=== PATIENT | female | born 1950 | race Caucasian/White ===

== ENCOUNTER 2020-06-22 14:08 | Outpatient (CLI) | payer MEDICARE, SELFPAY ==
--- NOTE | ~2020-06-22 | CT_ITS ---
EXAMINATION: CT chest wo con EXAM DATE: 06/22/2020 14:50 INDICATION: Pulmonary nodule follow-up. TECHNIQUE: Spiral CT of the chest without contrast. Low-dose technique used. Axial, coronal and sagi ttal images were reviewed. Coronal maximum intensity pixel images of chest reviewed. The dose-lengt h product (DLP) for this examination was 119.01 mGy-cm. The exposure was tailored according to patie nt size (auto mA exposure control), and iterative reconstruction (ASIR) was used as additional dose r eduction technique. Comparison is made to prior examination from 06/29/2019. FINDINGS: There is severe emphysema and moderate hyperinflation. Previously described 5 mm left uppe r lobe nodule is reidentified, decreased in size now measuring 4 mm. Right upper lobe scarring again noted. No new or suspicious pulmonary nodules. There are no pleural or pericardial effusions. Trac heobronchial tree is patent. There is no mediastinal, hilar or axillary lymphadenopathy. There is no pneumothorax. Heart normal in size. There are dense coronary arteries, could be severe umnguia ry arterial sclerosis and/or coronary artery stent(s), which are difficult to distinguish due to card iac motion on this non-gated exam. Correlate with cardiac history and consider cardiology consult if not recently evaluated. Upper abdomen is unremarkable. There is moderate thoracic spondylosis with out osteoblastic or osteolytic lesions identified. Mild lower thoracic levoscoliosis. IMPRESSION: 1. Left upper lobe nodule with decrease in size, consistent with noncalcified granuloma. 2. Severe emphysema. Moderate hyperinflation. 3. Severe coronary artery calcifications versus stents. Reviewed, dictated and finalized at location A.
== END 2020-06-22 14:09 | disposition home or self-care (01) ==
PROVIDERS: PCP Internal Medicine Infectious Disease; Visit Provider Nurse Practitioner
DX: R91.1 Solitary pulmonary nodule (principal); J43.9 Emphysema, unspecified; I25.10 Atherosclerotic heart disease of native coronary artery without angina pectoris
CPT/HCPCS: 71250

== ENCOUNTER 2020-12-29 13:28 | Outpatient (CLI) | payer MEDICARE, SELFPAY ==
[2020-12-29] VITALS (9 sets, daily range): O2SAT 83–92
--- NOTE | 2020-12-29 15:13 | HOMEO2EVAL ---
Evaluation was performed at [facility] Home Oxygen Evaluation RC: Home Oxygen (O2) Evaluation Start: 12/29/20 15:07 Freq: Status: Active Protocol: RPE Activity Type Activity Date Activity User E-Sign Co-Sign Detail Recorded Client Recorded Date Recorded By Document 12/29/20 14:30 [email or web address] 12/29/20 15:13 DJO Document 12/29/20 14:33 [email or web address] 12/29/20 15:13 DJO Document 12/29/20 14:34 [email or web address] 12/29/20 15:13 DJO Document 12/29/20 14:35 [email or web address] 12/29/20 15:13 DJO Document 12/29/20 14:36 [email or web address] 12/29/20 15:13 DJO Document 12/29/20 14:37 [email or web address] 12/29/20 15:13 DJO Document 12/29/20 14:38 [email or web address] 12/29/20 15:13 DJO Document 12/29/20 14:39 [email or web address] 12/29/20 15:13 DJO Document 12/29/20 14:45 [email or web address] 12/29/20 15:13 DJO 12/29/20 12/29/20 12/29/20 14:30 14:33 14:34 Home O2 Evaluation Test Phase Resting Exercise Exercise Oxygen Delivery Room Air Room Air Nasal Cannula Oxygen Flow Rate (L/min) 1 Pulse Oximetry (90-100 %) 92 83 L 84 L Ambulation Distance (feet) Home Oxygen Evaluation Comments Treatment Charges O2 Evaluation - Outpatient 12/29/20 12/29/20 12/29/20 14:35 14:36 14:37 Home O2 Evaluation Test Phase Exercise Exercise Exercise Oxygen Delivery Nasal Cannula Nasal Cannula Nasal Cannula Oxygen Flow Rate (L/min) 2 3 4 Pulse Oximetry (90-100 %) 85 L 85 L 85 L Ambulation Distance (feet) Home Oxygen Evaluation Comments Treatment Charges 12/29/20 12/29/20 12/29/20 14:38 14:39 14:45 Home O2 Evaluation Test Phase Exercise Exercise Resting Oxygen Delivery Nasal Cannula Nasal Cannula Room Air Oxygen Flow Rate (L/min) 5 6 Pulse Oximetry (90-100 %) 86 L 89 L 91 Ambulation Distance (feet) 450 Home Oxygen Evaluation Comments STOPPED EVERY PT REQUIRES 6 L 200 FEET TO PULSE DOSE O2 TITRATE O2. WITH EXERTION. PT USED ROOM AIR AT PERSONAL O2 AND REST. PERSONAL WHEELED WALKER. Treatment Charges
--- NOTE | 2020-12-29 15:13 | PCRCNOTE ---
HOME O2 EVAL FAXED TO OFFICE STAFF
--- NOTE | 2020-12-29 17:19 | WPDPFTINT ---
PFT Procedure Performed PFT Procedure Performed Spirometry with Pre/Post Bronchodilator Plethysmography (Lung Vol) Diffusing Cap (DLCO) PFT Interpretation This is a pulmonary function test with pre and post-bronchodilator spirometry, plethysmography and diffusing capacity. The test was performed and results interpreted in accordance with the 2019 and 2005 ATS/ERS Task Force guidelines respectively using the Global Lung Function Initiative-2012 reference equations. Patient demonstrated good effort and cooperation. Reproducibility criteria were met. The quality of the pre bronchodilator spirometry maneuver was Grade A and post bronchodilator spirometry maneuver was Grade A. Findings: Spirometry: There is decreased maximal expiratory airflow at all lung volumes with concave expiratory flow tracing. The contour of the inspiratory flow tracing is normal. The pre bronchodilator FVC is 1.29 L, 49% predicted. The pre bronchodilator FEV1 is 0.58 L, 28% predicted. The FEV1: FVC ratio is 45%. The post bronchodilator FVC is 1.45 L, representing a 160 mL increase or a 12% increase. The post bronchodilator FEV1 is 0.58 L, representing 1% increase. Plethysmography: The total lung capacity is 6.07 L, 128% predicted. The functional residual capacity is 4.67 L, 174% predicted. The residual volume is 4.60 L, 223% predicted. Diffusing capacity: The absolute diffusion capacity is 3.9, 20% predicted. The diffusing capacity corrected for alveolar volume is 1.71, 39% predicted. In comparison to previous pulmonary function test on 09/04/2019 the post bronchodilator FVC is unchanged from 1.46 L to 1.45 L. The post bronchodilator FEV1 is unchanged from 0.63 L to 0.58 L. The total lung capacity has increased from 4.89 L to 6.07 L. The functional residual capacity has increased from 3.84 L to 4.68 L. The residual volume has increased from 3.30 L to 4.60 L. The absolute diffusion capacity has decreased from 5.1 to 3.9. The diffusing capacity corrected for alveolar volume has decreased from 2.27 to 1.71. Impression: There is a very severe obstructive abnormality without significant improvement after inhaling a single dose of albuterol. The increase in residual volume is consistent with air trapping from an obstructive abnormality. Hyperinflation is present is demonstrated by the increase in functional residual capacity and total lung capacity and is consistent with an obstructive abnormality. The absolute diffusing capacity is severely decreased and remains severely decreased when corrected for alveolar volume. In comparison to the previous pulmonary function test on 09/04/2019 there has been a greater than anticipated time dependent increase in total lung capacity, residual functional residual capacity and residual volume with a greater than anticipated time dependent decrease in absolute DLCO and diffusing capacity corrected for alveolar volume with no significant change in the functional FVC and FEV1. clinical correlation is recommended. There are no prior studies for comparison
== END 2020-12-29 13:29 | disposition home or self-care (01) ==
LOC: ANHPFT 13:30
PROVIDERS: PCP Internal Medicine Infectious Disease; Visit Provider Nurse Practitioner
DX: J44.9 Chronic obstructive pulmonary disease, unspecified (principal); R94.2 Abnormal results of pulmonary function studies
CPT/HCPCS: 94060; 94618; 94726; 94729

== ENCOUNTER 2021-06-27 11:02 | Outpatient (CLI) | payer MEDICARE, MEDICAID, SELFPAY ==
--- NOTE | ~2021-06-27 | CT_ITS ---
EXAMINATION: CT diagnostic chest wo con DATE: 06/27/2021 11:29 INDICATION: Solitary pulmonary nodule TECHNIQUE: Computed tomography (CT) of the chest was performed without intravenous contrast. The dose -length product (DLP) was 57.95 mGy-cm. Automated exposure control and iterative reconstruction techn ique were employed. COMPARISON: 06/22/2020 FINDINGS: There is severe emphysema. A stable 5 mm nodule is present in the left upper lobe on image 42 there is stable scarring in the right lung apex. The lungs are free of acute opacities. There is n o pleural effusion or pneumothorax. No pathologically enlarged thoracic lymph nodes are identified. T he heart size is normal. Calcified coronary artery atherosclerosis is noted. There is moderate thorac ic spondylosis. IMPRESSION: 1. Severe emphysema. 2. Stable pulmonary nodules, consistent with old granulomatous disease. Reviewed, dictated and finalized at location A.
[2021-06-29 20:18] LABS: Immunoglobulin G, Serum 1104 mg/dL (600-1540); Immunoglobulin G1 584 mg/dL (382-929); Immunoglobulin G2 386 mg/dL (241-700); Immunoglobulin G3 34 mg/dL (22-178); Immunoglobulin G4 21.2 mg/dL (4.0-86.0)
[2021-06-30 15:39] LABS: Alpha-1-Antitrypsin, QN 152 mg/dL (83-199)
[2021-06-30 22:38] LABS: Immunoglobulin E 19 kU/L (<=114)
[2021-07-01 02:32] LABS: NIL 0.01 IU/mL; Quantiferon TB Plus, 1T NEGATIVE (NEGATIVE)
== END 2021-06-27 11:03 | disposition home or self-care (01) ==
PROVIDERS: PCP Internal Medicine Infectious Disease; Visit Provider Nurse Practitioner
DX: R91.8 Other nonspecific abnormal finding of lung field (principal); J43.9 Emphysema, unspecified; R06.09 Other forms of dyspnea; J30.2 Other seasonal allergic rhinitis
CPT/HCPCS: 36415; 71250; 82103; 82104; 82784; 82785; 82787; 86003; 86480

== ENCOUNTER 2023-02-15 13:01 | Outpatient (CLI) | payer MEDICARE, MEDICAID, SELFPAY ==
--- NOTE | ~2023-02-15 | CT_ITS ---
EXAMINATION: CT lung screening DATE: 02/15/2023 13:42 INDICATION: Lung cancer screening TECHNIQUE: Computed tomography (CT) of the chest was performed without intravenous contrast. The dose -length product was 62.00 mGy-cm. Automated exposure control and iterative reconstruction technique w ere employed. COMPARISON: CT dated 06/27/2021 FINDINGS: No significant pleural or pericardial effusion. No thoracic lymphadenopathy. There is ather osclerosis of the aorta and coronary arteries. Heart size normal. The upper abdomen is unremarkable. There are stable right upper lobe scarring. There is severe emphysema. Decreased size of 3 mm left up per lobe nodule, most likely infectious/inflammatory. No endobronchial lesions. Calcified granuloma i n the right lower lobe. There is 2 mm right lower lobe nodule, likely benign. There is moderate thora cic spondylosis with scoliosis. IMPRESSION: 1. Lung-RADS category 2: Benign appearance or behavior. Continue annual screening with noncontrast lo w-dose chest CT in 12 months. Reviewed, dictated and finalized at location [] IMPRESSION: 1. Lung-RADS category 2: Benign appearance or behavior. Continue annual screeni ng with noncontrast low-dose chest CT in 12 months.
--- NOTE | ~2023-02-15 | CT_ITS ---
EXAMINATION: CT abdomen pelvis w con DATE: 02/15/2023 13:42 INDICATION: History of nicotine dependence. Abdomen pain. History of colonic polyps. TECHNIQUE: Computed tomography (CT) of the abdomen and pelvis was performed with 100 cc Omnipaque 350 intravenous contrast. The dose-length product was 323.40 mGy-cm. Automated exposure control and iter ative reconstruction technique were employed. COMPARISON: CT dated 07/21/2019 FINDINGS: There is emphysema. Heart size normal. No significant pleural or pericardial effusion. Ther e is atherosclerosis of the aorta without aneurysm. No lymphadenopathy. The liver, spleen, pancreas, adrenal glands and kidneys are unremarkable. Nonobstructive bowel gas pa ttern. No free air or free fluid. No abnormal pelvic masses or fluid collections. Colonic diverticulo sis without evidence for diverticulitis. There is levoscoliosis. There is moderate lower thoracic and lumbar spondylosis. IMPRESSION: 1. No acute abdominal abnormality. Reviewed, dictated and finalized at location A.
[2023-02-15 13:37] LABS: Estimated Glomerular Filt Rate > 60
== END 2023-02-15 13:02 | disposition home or self-care (01) ==
PROVIDERS: PCP Internal Medicine Infectious Disease; Visit Provider Internal Medicine Infectious Disease
DX: R10.9 Unspecified abdominal pain (principal); Z12.2 Encounter for screening for malignant neoplasm of respiratory organs; Z87.891 Personal history of nicotine dependence
CPT/HCPCS: 71271; 74177; Q9967